=== PATIENT | female | born 1980 | race African-American/Black ===

== ENCOUNTER 2022-01-05 22:58 | Emergency (ER) | payer SELFPAY ==
[2022-01-05] MEDS ORDERED: Dexamethasone 10 MG/ML VIAL ONE (23:26)
[2022-01-05] MEDS ORDERED: diphenhydrAMINE 50 MG/ML VIAL ONE (23:27)
[2022-01-05] MEDS ORDERED: Metoclopramide HCl 10 MG/2 ML VIAL ONE (23:27)
[2022-01-05] MEDS ORDERED: Ondansetron PF 4 MG/2 ML Vial ONE (23:27)
[2022-01-05] MEDS ORDERED: Ketorolac Tromethamine 30 MG/ML VIAL ONE (23:27)
== END 2022-01-06 00:32 | disposition home or self-care (01) ==
LOC: CSHERS 22:58
DX: G43.909 Migraine, unspecified, not intractable, without status migrainosus (principal); F17.210 Nicotine dependence, cigarettes, uncomplicated
CPT/HCPCS: 96365; 96375; J1100; J1200; J1885; J2405; J2765

== ENCOUNTER 2022-01-13 22:15 | Emergency (ER) | payer SELFPAY ==
[2022-01-13] MEDS ORDERED: diphenhydrAMINE 50 MG/ML VIAL ONE (23:03)
[2022-01-13] MEDS ORDERED: Metoclopramide HCl 10 MG/2 ML VIAL ONE (23:04)
[2022-01-13] MEDS ORDERED: Acetaminophen 500 MG TAB ONE (23:04)
== END 2022-01-13 23:48 | disposition home or self-care (01) ==
LOC: CSHERS 22:15
DX: G43.909 Migraine, unspecified, not intractable, without status migrainosus (principal); F17.210 Nicotine dependence, cigarettes, uncomplicated
CPT/HCPCS: 96374; 96375; J1200; J2765

== ENCOUNTER 2022-07-15 10:21 | Emergency (ER) | payer MEDICAID, SELFPAY ==
[2022-07-15 11:21] LABS: Bilirubin Neg (Negative); Blood, Urine 250 (Negative); Clarity Cloudy (Clear); Glucose, Urine (Dipstick) Normal (Negative); Ketone, Urine Negative (Negative); Leukocyte 500 (Negative); Nitrite Negative (Negative); Protein, Urine (Dipstick) 100 mg/dl (Neg-Trace); Specific Gravity, Urine 1.015 (1.005-1.030); Urobilinogen Normal mg/dL (Less than 2)
[2022-07-15 11:33] LABS: #Eosinphils 0.1 10x3/uL (0.0-0.5); #Monocytes 0.6 10x3/uL (0.0-1.1); #Neutrophils 5.6 10x3/uL (1.5-8.4); %Basophils 0.1 % (0.0-2.0); %Eosinophils 1.2 % (0.0-6.0); %Lymphocytes 25.1 % (18.0-47.0); %Monocytes 6.6 % (0.0-10.0); %Neutrophils 66.8 % (40.0-75.0); Hemoglobin 10.2 g/dL (12.0-15.5); Mean Corpuscular HGB CONC 34.6 g/dL (32.0-36.0); Mean Corpuscular Hemoglobin 33.3 pg (27.0-33.0); Mean Corpuscular Volume 96.4 fl (81.6-98.3); Mean Platelet Volume 8.5 fl (7.4-10.4); Platelet Count 476 10x3/uL (150-450); RBC Distribution Width 11.8 % (11.5-14.5); Red Blood Cell (RBC) Count 3.06 10x6/uL (3.90-5.03); White Blood Cell (WBC) Count 8.3 10x3/uL (3.5-10.5)
[2022-07-15] MEDS ORDERED: Acetaminophen 325 MG TAB ONE (11:37)
[2022-07-15 11:59] LABS: ALT (SGPT) 11 U/L (8-55); AST (SGOT) 14 U/L (5-34); Albumin 4.1 g/dL (3.5-5.0); Alkaline Phosphatase 51 U/L (40-110); Anion Gap 10 mmol/L (10-20); BUN (Urea Nitrogen) 11 mg/dL (7.0-18.7); Bilirubin, Total 0.1 mg/dL (0.2-1.2); Calc. Creatinine Clearance 0 mL/min (70-130); Calcium 9.5 mg/dL (7.8-10.44); Carbon Dioxide 24 mmol/L (22-29); Chloride 105 mmol/L (98-107); Estimated GFR 113; Globulin 3.2 g/dL (2.4-3.5); Glucose 88 mg/dL (70-105); Potassium 3.4 mmol/L (3.5-5.1); Protein, Total 7.3 g/dL (6.0-8.3); Sodium 136 mmol/L (136-145)
[2022-07-15 12:09] LABS: RBC/HPF 21-50 HPF (0-3); WBC/HPF Greater Than 50 HPF (0-3)
[2022-07-15 12:10] LABS: Squamous Epithelial 0-3 HPF (0-3)
[2022-07-15 12:11] LABS: Bacteria/HPF Rare-Few HPF (None Seen); Mucous/LPF 2+ LPF (<2+)
== END 2022-07-15 12:55 | disposition home or self-care (01) ==
LOC: CSHERS 10:21
DX: O23.11 Infections of bladder in pregnancy, first trimester (principal); N30.00 Acute cystitis without hematuria; O99.331 Smoking (tobacco) complicating pregnancy, first trimester; F17.210 Nicotine dependence, cigarettes, uncomplicated; Z3A.08 8 weeks gestation of pregnancy
CPT/HCPCS: 80053; 81003; 81015; 84702; 85025; 87086; 99284